=== PATIENT | male | born 1985 | race Caucasian/White ===

== ENCOUNTER → 2016-09-20 | Outpatient (CLI) | payer BC ==
[2016-09-20 11:02] LABS: CHLORIDE,CL 107 mmol/L (98-110); SODIUM,NA 140 mmol/L (136-146)
--- NOTE | 2016-09-20 14:38 | CR ---
EXAMINATION: Right knee HISTORY: Soft tissue Disorders COMPARISON: None TECHNIQUE: 3 views FINDINGS/IMPRESSION: There is no acute osseous abnormality, dislocation, or fracture. Bone mineraliz ation and joint spaces appear normal. No soft tissue swelling or joint effusion.
== END ==
LOC: MW.CHFP 10:25
PROVIDERS: ATTEND Physician Assistant
DX: Z00.00 Encounter for general adult medical examination without abnormal findings (principal); R22.41 Localized swelling, mass and lump, right lower limb
CPT/HCPCS: 36415; 73562-26-RT; 73562-RT; 80053; 85025; 85379

== ENCOUNTER → 2016-09-24 | Outpatient (CLI) | payer BC | LOC: MW.CHFP 11:14 | PROVIDERS: ATTEND Physician Assistant | DX: Z00.00 Encounter for general adult medical examination without abnormal findings (principal) | CPT/HCPCS: 36415; 80061 ==